=== PATIENT | male | born 1950 | race Caucasian/White ===

== ENCOUNTER 2018-04-11 20:03 | Emergency (ER) | payer MEDICARE, BC ==
[~2018-04-11] VITALS: Ht 182.9 cm; Wt 95.3 kg
--- NOTE | 2018-04-11 20:10 | NUR ---
Pt. ambulated into ED, c/o 07/03 pain in foot and reports "hearing R foot crack wile walking in kitchen",
--- NOTE | 2018-04-11 20:15 | NUR ---
biomed tech. at bedside,
--- NOTE | 2018-04-11 20:37 | NUR ---
Patient discharged to home in stable conditon. Written and verbal after care instructions given. Patient verbalizes understanding of instructions. aMBULATED FROM ER WITH STABLE GAIT, USING CRUTCHES. GAIT TRAINING COMPLETE. ORTHO SPLINT APPLIED PER ER MD INSTRUCTION, [facility] WNL. ALL BELONGINGS WITH PATIENT.
[2018-04-11 20:39] VITALS: BP 131/81
== END 2018-04-11 20:40 | disposition home or self-care (01) ==
LOC: ER 20:06
DX: S92.321A Displaced fracture of second metatarsal bone, right foot, initial encounter for closed fracture (principal); I48.91 Unspecified atrial fibrillation; Z88.5 Allergy status to narcotic agent; Z88.8 Allergy status to other drugs, medicaments and biological substances; X50.1XXA Overexertion from prolonged static or awkward postures, initial encounter; Y93.89 Activity, other specified; Y99.8 Other external cause status
CPT/HCPCS: 73630; A4663

== ENCOUNTER 2018-09-14 10:39 | Emergency (ER) | payer MEDICARE, BC ==
[~2018-09-14] VITALS: Ht 182.9 cm; Wt 93.0 kg
--- NOTE | 2018-09-14 10:54 | NUR ---
PT A/OX4, PRESENTS TO THE ER C/O LUE PAIN. PT REPORTS HE WAS WEIGHT LIFTING IN THE GYM "COUPLE OF DAYS AGO" AND THE LUE BEGAN TO HURT. LUE PAIN IS PROVOKED BY MOVEMENT, ACHING IN QUALITY, DOES NOT RADIATE, 5/10, CONSTANT. NO VISIBLE DEFORMITY TO THE LUE, NO EDEMA. VSS. PT DENIES C/P, SOB, N/V/D, DIZZINESS, HEADACHE.
--- NOTE | 2018-09-14 11:01 | NUR ---
AWILDA GALLEGOS AT BEDSIDE FOR MSE.
[2018-09-14] MEDS ORDERED: LIDOCAINE HCL 1% 20 ML VIAL IJ ONE (11:15)
[2018-09-14] MEDS ORDERED: methylPREDNISolone ACETATE 40 MG VIAL IM ONE (11:15)
[2018-09-14] MEDS ORDERED: methylPREDNISolone ACETATE 40 MG VIAL ONE (11:19)
--- NOTE | 2018-09-14 11:39 | NUR ---
Patient discharged to home in stable conditon. Written and verbal after care instructions given. Patient verbalizes understanding of instructions. ALL BELONGINGS W/ PT. PT SELF-AMBULATED W/O DIFFICULTY.
[2018-09-14 11:40] VITALS: BP 116/71
== END 2018-09-14 11:40 | disposition home or self-care (01) ==
LOC: ER 10:39
DX: M77.12 Lateral epicondylitis, left elbow (principal); I48.91 Unspecified atrial fibrillation; E11.9 Type 2 diabetes mellitus without complications; Z88.8 Allergy status to other drugs, medicaments and biological substances; Z88.5 Allergy status to narcotic agent
CPT/HCPCS: 20605; 99284; J1030; J3490; A4663

== ENCOUNTER 2018-12-06 10:30 | Emergency (ER) | payer MEDICARE, BC ==
[~2018-12-06] VITALS: Ht 182.9 cm; Wt 93.0 kg
--- NOTE | 2018-12-06 10:41 | NUR ---
Dr Diaz at the bedside for MSE.
[2018-12-06] MEDS ORDERED: METO100T14 PO (10:43)
[2018-12-06] MEDS ORDERED: SERT100T PO (10:47)
[2018-12-06] MEDS ORDERED: LISI40TA4 PO (10:47)
[2018-12-06] MEDS ORDERED: VIT1CAPS44 PO (10:47)
[2018-12-06] MEDS ORDERED: PROP225C8 PO (10:47)
[2018-12-06] MEDS ORDERED: SITA1TAB2 PO (10:47)
[2018-12-06] MEDS ORDERED: GLIM2TAB2 PO (10:47)
[2018-12-06] MEDS ORDERED: EMPA10TA PO (10:47)
[2018-12-06] MEDS ORDERED: PRAV40TA3 PO (10:47)
[2018-12-06] MEDS ORDERED: CYAN-51 PO (10:47)
[2018-12-06] MEDS ORDERED: APIX5TAB4 PO (10:47)
--- NOTE | 2018-12-06 11:31 | NUR ---
Crutches dispensed. Pt instructed on proper use of crutches. Patient able to demonstrate correct use of crutches.
--- NOTE | 2018-12-06 12:01 | NUR ---
Patient discharged to home in stable conditon. Written and verbal after care instructions given. Patient verbalizes understanding of instructions.
[2018-12-06 12:02] VITALS: BP 124/73
== END 2018-12-06 12:03 | disposition home or self-care (01) ==
LOC: ER 10:30
DX: S92.334A Nondisplaced fracture of third metatarsal bone, right foot, initial encounter for closed fracture (principal); I48.91 Unspecified atrial fibrillation; E11.9 Type 2 diabetes mellitus without complications; Z88.5 Allergy status to narcotic agent; Z88.8 Allergy status to other drugs, medicaments and biological substances; Z79.899 Other long term (current) drug therapy; W18.40XA Slipping, tripping and stumbling without falling, unspecified, initial encounter; Y93.89 Activity, other specified; Y92.89 Other specified places as the place of occurrence of the external cause; Y99.8 Other external cause status
CPT/HCPCS: 73630; A4663

== ENCOUNTER 2019-06-04 09:45 | Emergency (ER) | payer MEDICARE, BC ==
[~2019-06-04] VITALS: Ht 182.9 cm; Wt 93.0 kg
[~2019-06-04 09:45] MED LIST: APIX5TAB4 PO; CYAN-51 PO; EMPA10TA PO; GLIM2TAB31 PO; LISI40TA4 PO; METO100T14 PO; PRAV40TA3 PO; PROP225C8 PO; SERT100T PO; SITA1TAB2 PO; VIT1CAPS44 PO
--- NOTE | 2019-06-04 10:11 | NUR ---
Patient ambulated with stable gait. Speech is clear, speaks in complete sentences. A/Ox4. No acute neuro deficits. Patient came for c/o "A-fib". States that his heart rate was low, denies any cp, or sob. All pulses palpable, cap refill <3 sec with good perfusion. Denies any n/v/d.
[2019-06-04] MEDS ORDERED: SITA100T PO (10:19)
[2019-06-04] MEDS ORDERED: IV NORMAL SALINE 500 ML BAG IV ONE (10:30)
[2019-06-04 10:44] LABS: BASOPHILS % (AUTO) 0.4 % (0.0-2.0); EOSINOPHILS # (AUTO) 0.1 K/uL (0.0-0.7); EOSINOPHILS % (AUTO) 1.5 % (0.0-7.0); HEMATOCRIT 47.1 % (36.7-47.1); HEMOGLOBIN 15.3 g/dL (12.5-16.3); LYMPHOCYTES # (AUTO) 1.3 K/uL (20.0-40.0); LYMPHOCYTES % (AUTO) 17.5 % (20.5-51.5); MEAN CORPUSCULAR HEMOGLOBIN 26.4 uug (23.8-33.4); MEAN CORPUSCULAR HGB CONC 33 g/dL (32.5-36.3); MEAN CORPUSCULAR VOLUME 81.2 fL (73.0-96.2); MONOCYTES # (AUTO) 0.7 K/uL (2.0-10.0); MONOCYTES % (AUTO) 8.8 % (0.0-11.0); NEUTROPHILS # (AUTO) 5.5 K/uL (1.8-8.9); NEUTROPHILS % (AUTO) 71.8 % (38.5-71.5); PLATELET COUNT (AUTO) 138 K/uL (152-348); WHITE BLOOD COUNT (AUTO) 7.6 K/uL (3.6-10.2)
[2019-06-04 10:51] LABS: CREATININE 1.8 mg/dL (0.6-1.3)
[2019-06-04 10:54] LABS: MAGNESIUM 2.2 mg/dL (1.8-2.4); PHOSPHOROUS 3.5 mg/dL (2.5-4.9)
[2019-06-04 10:57] LABS: BILIRUBIN,DIRECT 0.1 mg/dL (0.0-0.2); BILIRUBIN,TOTAL 0.6 mg/dL (0.2-1.0); TOTAL PROTEIN, SERUM 7.2 g/dL (6.4-8.2)
--- NOTE | 2019-06-04 11:10 | NUR ---
DR RIOS SPOKE WITH DAVID WAS MADE AWARE OF TEST RESULTS WILL BE DC HOME.
--- NOTE | 2019-06-04 11:14 | NUR ---
Patient discharged to home in stable conditon. Written and verbal after care instructions given. Patient verbalizes understanding of instructions.
[2019-06-04 11:17] VITALS: BP 133/72
== END 2019-06-04 11:17 | disposition home or self-care (01) ==
LOC: ER 09:46
DX: R00.2 Palpitations (principal); I48.91 Unspecified atrial fibrillation; E11.9 Type 2 diabetes mellitus without complications; Z88.8 Allergy status to other drugs, medicaments and biological substances; Z88.5 Allergy status to narcotic agent; Z79.899 Other long term (current) drug therapy
CPT/HCPCS: 36415; 83690; 83735; 84100; 85025; 93005; A4663; J7030

== ENCOUNTER 2021-03-13 16:49 | Emergency (ER) | payer MEDICARE, BC ==
[~2021-03-13] VITALS: Ht 182.9 cm; Wt 97.5 kg
[~2021-03-13 16:49] MED LIST changes: +LISI40TA13 PO; -LISI40TA4 PO; +SITA100T PO; -SITA1TAB2 PO
[2021-03-13] MEDS ORDERED: SULF1TAB48 PO (17:10)
[2021-03-13] MEDS ORDERED: CLIN300C12 PO (17:10)
--- NOTE | 2021-03-13 17:25 | NUR ---
Patient discharged to home in stable condition. Written and verbal after care instructions given. Patient verbalizes understanding of instructions. Stressed follow up or return to ER for worsening s/s.
== END 2021-03-13 17:43 | disposition home or self-care (01) ==
LOC: ER 16:53
DX: M70.22 Olecranon bursitis, left elbow (principal); S59.902S Unspecified injury of left elbow, sequela; X58.XXXS Exposure to other specified factors, sequela; L03.114 Cellulitis of left upper limb; Z88.5 Allergy status to narcotic agent; E11.9 Type 2 diabetes mellitus without complications; E78.5 Hyperlipidemia, unspecified; Z85.038 Personal history of other malignant neoplasm of large intestine; I48.91 Unspecified atrial fibrillation; Z79.01 Long term (current) use of anticoagulants; Z79.84 Long term (current) use of oral hypoglycemic drugs
CPT/HCPCS: A4663

== ENCOUNTER 2021-03-15 09:58 | Emergency (ER) | payer MEDICARE, BC ==
[~2021-03-15] VITALS: Ht 188 cm; Wt 97.5 kg
[~2021-03-15 09:58] MED LIST changes: +CLIN300C12 PO; +SULF1TAB48 PO
--- NOTE | 2021-03-15 10:04 | NUR ---
PT IS IN ROOM #2A. DR ZAVALA EVALUATED THE PT.
== END 2021-03-15 10:12 | disposition home or self-care (01) ==
LOC: ER 09:58
DX: M70.22 Olecranon bursitis, left elbow (principal); E11.9 Type 2 diabetes mellitus without complications; Z79.84 Long term (current) use of oral hypoglycemic drugs; Z85.038 Personal history of other malignant neoplasm of large intestine; E78.5 Hyperlipidemia, unspecified; Z88.5 Allergy status to narcotic agent; Z88.8 Allergy status to other drugs, medicaments and biological substances; I48.91 Unspecified atrial fibrillation; Z79.01 Long term (current) use of anticoagulants
CPT/HCPCS: A4663

== ENCOUNTER 2021-03-18 19:02 | Emergency (ER) | payer MEDICARE, BC ==
[~2021-03-18] VITALS: Ht 182.9 cm; Wt 97.5 kg
[~2021-03-18 19:02] MED LIST changes: -SULF1TAB48 PO
--- NOTE | 2021-03-18 20:47 | NUR ---
Patient left without discharge paperwork. Patient discharged to home in stable condition. Written and verbal after care instructions given. Patient verbalizes understanding of instructions. Stressed follow up or return to ER for worsening s/s.
== END 2021-03-18 20:48 | disposition home or self-care (01) ==
LOC: ER 19:03
DX: M70.32 Other bursitis of elbow, left elbow (principal); Z85.038 Personal history of other malignant neoplasm of large intestine; E11.9 Type 2 diabetes mellitus without complications; E78.5 Hyperlipidemia, unspecified; Z88.6 Allergy status to analgesic agent; Z79.84 Long term (current) use of oral hypoglycemic drugs; I48.91 Unspecified atrial fibrillation; Z79.01 Long term (current) use of anticoagulants
CPT/HCPCS: A4663